=== PATIENT | male | born 1960 | race Caucasian/White ===

== ENCOUNTER → 2019-05-27 10:13 | Outpatient (CLI) | payer OTHER, MEDICAID, SELFPAY ==
[2019-05-27 10:51] LABS: Add Manual Diff / Slide Review NO; Basophils Absolute Auto 0 /uL (0-100); Basophils Percent Auto 0.6 % (0-2); Eosinophils Absolute Auto 200 /uL (0-450); Eosinophils Percent Auto 2.2 % (2-4); Hematocrit 46.6 % (41-53); Hemoglobin 15.6 g/dL (13.5-17.5); Lymphocytes Absolute Auto 1600 /uL (1100-4500); Lymphocytes Percent Auto 21.4 % (25-40); Mean Corpuscular HGB Conc 33.4 % (30-36); Mean Corpuscular Hemoglobin 30.3 PG (26-34); Mean Corpuscular Volume 90.8 fL (80-100); Monocytes Absolute Auto 700 /uL (0-900); Monocytes Percent Auto 9.3 % (3-14); Neutrophils Absolute Auto 5100 /uL (1500-7000); Neutrophils Percent Auto 66.5 % (50-75); Platelet Count 187 X10^3/uL (150-400); Red Blood Cell Count 5.13 X10^6/uL (4.5-5.9); Red Cell Distribution Width 13.8 % (11.6-14.8); White Blood Cell Count 7.6 X10^3/uL (4.5-11.0)
[2019-05-27 11:44] LABS: Alanine Aminotransferase 31 IU/L (21-72); Albumin 4.1 g/dL (3.5-5.0); Albumin Globulin Ratio 1.4 (1.0-2.8); Alkaline Phosphatase 105 U/L (38-126); Aspartate Aminotransferase 32 IU/L (17-59); BUN Creatinine Ratio 15.8 (6-22); Bilirubin Total 0.6 mg/dL (0.2-1.3); Blood Urea Nitrogen 19 mg/dL (9-20); Calcium 9.6 mg/dL (8.4-10.2); Carbon Dioxide 31 mmol/L (22-32); Chloride 102 mmol/L (98-107); Estimated Glomerular Filt Rate > 60.0 mL/min (>60); Globulin 2.9 g/dL (1.7-4.1); Glucose 77 mg/dL (70-100); HEMOLYSIS 16 (0-50); Sodium 139 mmol/L (137-145)
[2019-05-27 12:15] LABS: Prostate Specific Antigen Scrn 0.312 ng/mL (0.1-4.0)
== END ==
PROVIDERS: PCP Student in an Organized Health Care Education/Training Program; Visit Provider Student in an Organized Health Care Education/Training Program
DX: Z71.89 Other specified counseling (principal); E55.9 Vitamin D deficiency, unspecified; Z12.5 Encounter for screening for malignant neoplasm of prostate
CPT/HCPCS: 36415; 80053; 82306; 85025; G0103

== ENCOUNTER → 2022-01-18 07:42 | Outpatient (CLI) | payer OTHER, MEDICAID, SELFPAY ==
[2022-01-18 08:21] LABS: Appearance Urine UA CLEAR; Bilirubin Urine UA NEGATIVE (NEGATIVE); Color Urine UA YELLOW; Glucose Urine UA NEGATIVE (Negative); Ketones Urine UA NEGATIVE (NEGATIVE); Leukocyte Esterase Urine UA NEGATIVE (NEGATIVE); Nitrite Urine UA NEGATIVE (Negative); Occult Blood Urine UA NEGATIVE (Negative); Protein Urine UA NEGATIVE (Negative); Urobilinogen Urine UA 0.2 E.U./dL (0.2)
[2022-01-18 08:37] LABS: Cholesterol 196 mg/dL (140-199); HDL Cholesterol 63 mg/dL (40-60); LDL Cholesterol Calculated 113 mg/dL (<100); Triglycerides 102 mg/dL (35-150)
[2022-01-18 09:09] LABS: Prostate Specific Antigen Scrn 0.345 ng/mL (0.1-4.0)
[2022-01-18 10:02] LABS: Bacteria Urine None Seen; Culture Indicated Urine Cult Not Indicated; RBC Urine None Seen (0-5/HPF); WBC Urine None Seen (0-5/HPF)
== END ==
PROVIDERS: PCP Student in an Organized Health Care Education/Training Program; Referring Provider Student in an Organized Health Care Education/Training Program; Visit Provider Student in an Organized Health Care Education/Training Program
DX: Z13.220 Encounter for screening for lipoid disorders (principal); Z12.5 Encounter for screening for malignant neoplasm of prostate; R10.9 Unspecified abdominal pain
CPT/HCPCS: 36415; 80061; 81001; G0103

== ENCOUNTER → 2023-06-17 08:34 | Outpatient (CLI) | payer OTHER, MEDICAID, SELFPAY ==
[2023-06-17 09:11] LABS: Add Manual Diff / Slide Review NO; Basophils Absolute Auto 100 /uL (0-100); Basophils Percent Auto 0.7 % (0-2); Eosinophils Absolute Auto 200 /uL (0-450); Eosinophils Percent Auto 3.3 % (2-4); Hematocrit 45.4 % (41-53); Hemoglobin 15.8 g/dL (13.5-17.5); Lymphocytes Absolute Auto 1600 /uL (1100-4500); Mean Corpuscular HGB Conc 34.8 % (30-36); Mean Corpuscular Hemoglobin 30.9 PG (26-34); Monocytes Absolute Auto 600 /uL (0-900); Monocytes Percent Auto 9.5 % (3-14); Neutrophils Absolute Auto 4200 /uL (1500-7000); Neutrophils Percent Auto 62.5 % (50-75); Platelet Count 167 X10^3/uL (150-400); Red Cell Distribution Width 13.8 % (11.6-14.8); White Blood Cell Count 6.7 X10^3/uL (4.5-11.0)
[2023-06-17 09:36] LABS: Alanine Aminotransferase 26 IU/L (<50); Albumin 3.9 g/dL (3.5-5.0); Albumin Globulin Ratio 1.3 (1.0-2.8); Alkaline Phosphatase 77 U/L (38-126); Aspartate Aminotransferase 35 IU/L (17-59); BUN Creatinine Ratio 15.8 (6-22); Bilirubin Total 0.9 mg/dL (0.2-1.3); Blood Urea Nitrogen 18 mg/dL (9-20); Calcium 8.7 mg/dL (8.4-10.2); Carbon Dioxide 31 mmol/L (22-32); Chloride 103 mmol/L (98-107); Cholesterol 182 mg/dL (140-199); Estimated Glomerular Filt Rate > 60 mL/min (>60); Globulin 3.1 g/dL (1.7-4.1); Glucose 90 mg/dL (80-110); HDL Cholesterol 55 mg/dL (40-60); HEMOLYSIS < 15 (0-50); INR 1.1 (0.9-1.3); LDL Cholesterol Calculated 104 mg/dL (<100); Potassium 4.1 mmol/L (3.4-5.1); Prothrombin Time 12.9 SECONDS (10.1-12.7); Sodium 137 mmol/L (137-145); Triglycerides 115 mg/dL (35-150)
[2023-06-17 09:39] LABS: Appearance Urine UA CLEAR; Bilirubin Urine UA NEGATIVE (NEGATIVE); Color Urine UA YELLOW; Glucose Urine UA NEGATIVE (Negative); Ketones Urine UA NEGATIVE (NEGATIVE); Leukocyte Esterase Urine UA NEGATIVE (NEGATIVE); Nitrite Urine UA NEGATIVE (Negative); Occult Blood Urine UA NEGATIVE (Negative); Protein Urine UA NEGATIVE (Negative); Specific Gravity Urine UA 1.015 (1.000-1.035); Urobilinogen Urine UA 0.2 E.U./dL (0.2)
[2023-06-17 09:52] LABS: Bacteria Urine None Seen; Culture Indicated Urine Cult Not Indicated; RBC Urine None Seen (0-5/HPF); Squamous Epithelial Cell Urine None Seen (0-5/HPF); WBC Urine None Seen (0-5/HPF)
[2023-06-17 09:56] LABS: Prostate Specific Antigen Scrn 0.402 ng/mL (0.1-4.0)
[2023-06-17 10:24] LABS: HIV 1 & 2 Ab/Ag 4th Gen Combo NEGATIVE (NEGATIVE); Hep C Virus Ab w/Reflex Quant NEGATIVE s/c (NEGATIVE)
== END ==
PROVIDERS: PCP Pediatrics; Referring Provider Pediatrics; Visit Provider Pediatrics
DX: E78.2 Mixed hyperlipidemia (principal); K14.8 Other diseases of tongue; Z00.00 Encounter for general adult medical examination without abnormal findings; Z86.79 Personal history of other diseases of the circulatory system; Z12.5 Encounter for screening for malignant neoplasm of prostate; Z83.2 Family history of diseases of the blood and blood-forming organs and certain disorders involving the immune mechanism
CPT/HCPCS: 36415; 80053; 80061; 81001; 81240; 85025; 85610; 86803; 87389; G0103

== ENCOUNTER → 2024-03-16 15:16 | Outpatient (CLI) | payer OTHER, MEDICAID, SELFPAY ==
--- NOTE | 2024-03-16 15:17 | DI.RAD.S_ITS ---
PROCEDURE: XR CHEST 2V INDICATIONS: recent exposure to TB TECHNIQUE: 2 views of the chest were acquired. COMPARISON: None. FINDINGS: Surgical changes and devices: None. Lungs and pleura: Lungs are clear. No pleural effusions or pneumothorax. Prominent nipple shadows. Mediastinum: Mediastinal contours are normal. Heart size is normal. Bones and chest wall: No suspicious bony abnormalities. Soft tissues appear unremarkable. IMPRESSION: No evidence of active tuberculosis infection. Dictated by: Zeke Malone M.D. on 03/16/2024 at 16:15 Approved by: Zeke Malone M.D. on 03/16/2024 at 16:15
== END ==
PROVIDERS: PCP Family Medicine; Referring Provider Family Medicine; Visit Provider Family Medicine
DX: Z20.1 Contact with and (suspected) exposure to tuberculosis (principal)
CPT/HCPCS: 36415; 71046; 86480

== ENCOUNTER 2024-09-30 09:15 | Emergency (ER) | payer OTHER, MEDICAID, SELFPAY ==
[2024-09-30 09:16] VITALS: BP 140/68; PULSE 80; RESP 144; TEMP 36.8; O2SAT 99; BMI 31.0
[2024-09-30 09:20] VITALS: PULSE 81; O2SAT 99
[2024-09-30 09:21] VITALS: BP 140/68; PULSE 82; O2SAT 99
[2024-09-30 09:29] VITALS: BP 151/82; PULSE 82; O2SAT 98
--- NOTE | 2024-09-30 09:29 | DI.US.S_ITS ---
PROCEDURE: US PERIPH VENOUS LOW EXTREM RT INDICATIONS: rule out blood clot TECHNIQUE: Real-time imaging, as well as color and pulse Doppler interrogation, were performed of the lower extremity deep veins from the inguinal ligament to the popliteal fossa, with documentation of the visualized calf veins. COMPARISON: None. FINDINGS: Deep venous thrombosis in 1 of the paired posterior tibial veins. Superficial venous thrombosis in the greater saphenous vein in the calf and distal perforating branch. The common femoral, femoral, popliteal veins are normally compressible, and free of intraluminal thrombus. Color and pulse Doppler demonstrate normal phasic intraluminal flow. There is normal augmentation response to distal compression maneuver. IMPRESSION: Deep venous thrombosis of 1 of the paired posterior tibial calf veins. Superficial thrombosis of the greater saphenous vein in the mid calf. Dictated by: Zeke Malone M.D. on 09/30/2024 at 10:24 Approved by: Zeke Malone M.D. on 09/30/2024 at 10:25
[2024-09-30 09:30] VITALS: O2SAT 98
--- NOTE | 2024-09-30 09:48 | ED_ITS ---
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 About a year and a half ago he had a DVT that resolve spontaneously. He has recently turned from [place] with long drives and long flights. Went to bed well last night in the middle of the night woke up with increasing lower calf pain similar to that that he experienced year and half ago. No fevers, cough, chills, palpitations, shortness for breath. He has never been on blood thinners. Extensive family history of blood clots with multiple members being homozygotic for prothrombin abnormalities Related Data Previous Rx's Medication Instructions Recorded fluticasone propionate 50 1 spray intranasal BID #16 grams 10/24/23 mcg/actuation nasal spray,suspension amoxicillin 875 mg-potassium 1 tab PO BID 7 days #14 tabs 11/13/23 clavulanate 125 mg tablet bacitracin zinc 500 unit-polymyxin 1 applic topical Q12H 7 days #28.3 11/13/23 B 10,000 unit/gram topical ointment grams cephalexin 500 mg capsule 500 mg PO QID 10 days #40 caps 11/13/23 ciprofloxacin 0.2 %-hydrocortisone 3 drp otic (ear) BID 7 days #10 mL 11/13/23 1 % ear drops,suspension ciprofloxacin HCl 500 mg tablet 500 mg PO BID 10 days #20 tabs 11/13/23 metronidazole 500 mg tablet 500 mg PO TID 10 days #30 tabs 11/13/23 sulfamethoxazole 800 1 tab PO BID #14 tabs 11/13/23 mg-trimethoprim 160 mg tablet apixaban 5 mg (74 tabs) tablets in See Rx Instructions PO .COMPLEX 09/30/24 a dose pack (Eliquis DVT-PE Treat #74 ea 30D Start) Allergies Allergy/AdvReac Type Severity Reaction Status Date / Time tetracycline [TETRACYCLINE] Allergy Unknown Verified 09/30/24 09:23 Review of Systems Review of Systems Narrative: Pertinent positive and negative findings as per HPI Patient History Medical History (Updated 09/30/24 @ 10:36 by Mary Carrillo MD) Family history of blood dyscrasia History of hypertension Abnormal color of tongue Hypertension Hemorrhoid (~1989) 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) Vesicular rash (01/29/16) Surgical History Anesthesia Herniated disc (~1989) History of inguinal hernia repair (~1981) Status post knee surgery (~1978) Family History Father Cancer Social History Smoking Status: Never smoker Smoking Status: Never smoker alcohol intake frequency: holidays/special occasions only Substance Use Type: does not use Exam Initial Vital Signs Initial Vital Signs: Vital Signs Temperature 98.2 F 09/30/24 09:16 Pulse Rate 80 09/30/24 09:16 Respiratory Rate 144 H 09/30/24 09:16 Blood Pressure 140/68 09/30/24 09:16 Pulse Oximetry 99 09/30/24 09:16 Oxygen Delivery Method Room Air 09/30/24 09:16 General: Healthy appearing, in no acute distress. Able to give a complete and coherent history. Well-nourished well-developed Respiratory: Lungs are clear to auscultation, no wheezing no rales no rhonchi. Full and symmetrical air movement Cardiac: Regular rate and rhythm no murmurs no bruits Neurologic: Grossly neurologically intact with no obvious asymmetries or abnormalities Extremities: Neurovascularly intact. Tenderness on the medial aspect of the right lower calf into the central portion of the calf muscle. Minor hemosiderin deposits, minor varicose veins around the ankle. Left calf is unremarkable Psych: Cooperative, appropriate insight and affect Course Orders Ordered: ED Orders 09/30/24 09:29 perip venous low extrem rt Stat Vital Signs Vital signs: Vital Signs - 8 hr 09/30/24 09:16 09/30/24 09:20 09/30/24 09:21 Temperature 98.2 F Pulse Rate 80 81 82 Respiratory Rate 144 H Blood Pressure 140/68 Pulse Oximetry 99 99 99 Oxygen Delivery Method Room Air 09/30/24 09:21 09/30/24 09:29 09/30/24 09:29 Temperature Pulse Rate 82 Respiratory Rate Blood Pressure 140/68 151/82 H Pulse Oximetry 98 Oxygen Delivery Method 09/30/24 09:30 Temperature Pulse Rate Respiratory Rate Blood Pressure Pulse Oximetry 98 Oxygen Delivery Method MDM - Extremity (Nontraumatic) Imaging Data US - DVT: Radiologist's Impression: PROCEDURE: US PERIPH VENOUS LOW EXTREM RT INDICATIONS: rule out blood clot TECHNIQUE: Real-time imaging, as well as color and pulse Doppler interrogation, were perf ormed of the lower extremity deep veins from the inguinal ligament to the popliteal fossa, with documentation of the visualized calf veins. COMPARISON: None. FINDINGS: Deep venous thrombosis in 1 of the paired posterior tibial veins. Superficial venous thrombosis in the greater saphenous vein in the calf and distal perforating branch. The common femoral, femoral, popliteal veins are normally compressible, and free of intraluminal thrombus. Color and pulse Doppler demonstrate normal phasic intraluminal flow. There is normal augmentation response to distal compression maneuver. IMPRESSION: Deep venous thrombosis of 1 of the paired posterior tibial calf veins. Superficial thrombosis of the greater saphenous vein in the mid calf. Dictated by: Zeke Malone M.D. on 09/30/2024 at 10:24 MDM Narrative Medical decision making narrative: 64-year-old gentleman with right calf pain starting in the middle of the night. Reminiscent of pain similar to a DVT about a year and half ago which was not fully worked up and not treated at the time. He has a heterozygote carrier for prothrombin mutation. Ultrasound shows nonocclusive clot developing in the lower calf with a small amount of clot extending into the deep vessels of the calf. No proximal clot. Long discussion regarding risk factors, need for Eliquis, need for follow up with primary care and likely with Hematology to discuss how long he should be on anticoagulation given his heterozygote known prothrombin mutation. We did re view risks of bleeding reasons to come to the ER with minor head injuries, avoiding all nonsteroidals, wearing compression socks regularly and stopping the Alleve that he sometimes uses for back pain. He will be following up with his primary care physician, questions are answered, there was no indication for larger occlusive clot, pulmonary emboli, acute coronary syndrome or additional reasons for hospitalization at this time. Discharge Plan Departure Patient Disposition: Home Clinical Impression: DVT (deep venous thrombosis) Qualifiers: DVT location: lower extremity Affected thrombotic vein of extremity: unspecified lower extremity distal vein Chronicity: acute Laterality: right Qualified Code(s): I82.4Z1 - Acute embolism and thrombosis of unspecified deep veins of right distal lower extremity Instructions: DI for Deep Vein Thrombosis Activity Restrictions/Additional Instructions: Thank you for coming in today You do have a blood clot in the very lower portion of your leg. I have started you on Eliquis/apixaban, a blood thinner to prevent the clot from expanding or developing any new clots. The dosing for this is 10 mg morning and night for the 1st week then decreasing to 5 mg to continue. At the very minimum you will need 3 months of treatment. With your heterozygote prothrombin abnormality, the recommendation for longer treatment if not lifelong treatment we will need to be discussed. 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 It would be ideal for you to take a 2nd dose this evening I would recommend a follow up with your primary care physician, I have given you the 1st month's prescription of Eliquis. Your primary care physician may recommend follow up with dishcloth folder. I have found Dr. Kelly to be excellent at answering questions. Now that you are on a blood thinner you need to be aware that your risk for bleeding is higher. If you hit your head in any significant way(not including bumps on cabinets or door frames) you do need to come into the emergency department to be further evaluated for bleeding inside your head. Moderate inj uries the in the past may have had minor bleeding can now have more impressive bleeding. If you are having more pain, larger bruising or different findings than you would expect from the amount of trauma that you experienced, you do need to come to the ER No nonsteroidals-this includes ibuprofen, Motrin, naproxen, Alleve. Use aspirin very sparingly. To Excedrin occasionally for headache is going to be okay I would recommend regular use of compression socks to help with pain and swelling. We talked about using running compression socks as the compression is actually quite impressive and they are much more comfortable for extended wear. If you find that you are getting worse or develop any new symptoms, please feel free to return to the emergency department for further evaluation. Prescriptions: New Eliquis DVT-PE Treat 30D Start 5 mg (74 tabs) tablets,dose pack See Rx Instructions .ROUTE .COMPLEX Qty: 74 0RF Rx Instructions: orally per package directions No Action fluticasone propionate 50 mcg/actuation spray,suspension 1 spray intranasal BID Qty: 16 1RF Rx Instructions: administer into each nostril cephalexin 500 mg capsule 500 mg PO QID 10 Days Qty: 40 1RF sulfamethoxazole-trimethoprim 800-160 mg tablet 1 tab PO BID Qty: 14 1RF ciprofloxacin HCl 500 mg tablet 500 mg PO BID 10 Days Qty: 20 1RF Rx Instructions: Use for 5-10 days depending on severity of infection metronidazole 500 mg tablet 500 mg PO TID 10 Days Qty: 30 1RF Rx Instructions: Use for 5-10 days depending on severity of infection ciprofloxacin-hydrocortisone 0.2-1 % drops,suspension 3 drp otic (ear) BID 7 Days Qty: 10 1RF bacitracin zinc-polymyxin B 500-10,000 unit/gram ointment 1 applic topical Q12H 7 Days Qty: 28.3 1RF amoxicillin-pot clavulanate 875-125 mg tablet 1 tab PO BID 7 Days Qty: 14 1RF Referrals: Preet Farfan MD [Primary Care Provider] - Stand Alone Forms: Patient Portal/API/Survey
[2024-09-30 10:43] VITALS: BP 130/64; PULSE 78; RESP 16; TEMP 36.6; O2SAT 97
[2024-09-30] MEDS: APIXABAN 5 MG TABLET 10 MG PO (10:46)
== END 2024-09-30 11:19 | disposition home or self-care (01) ==
PROVIDERS: Emergency Provider Emergency Medicine; PCP Family Medicine
DX: I82.4Z1 Acute embolism and thrombosis of unspecified deep veins of right distal lower extremity (principal)
CPT/HCPCS: 93971; 99283

== ENCOUNTER → 2024-10-12 15:12 | Outpatient (CLI) | payer OTHER, MEDICAID, SELFPAY ==
--- NOTE | 2024-10-12 15:13 | DI.US.S_ITS ---
PROCEDURE: US ABDOMEN LIMITED INDICATIONS: New, umbilical hernia following yardwork. No pain. TECHNIQUE: Real-time focused scanning was performed of the abdomen, with image documentation. COMPARISON: None. FINDINGS: There is a fat containing umbilical hernia measuring 2.0 x 2.1 x 2.9 cm in size with wall defect measuring approximately 1.1 x 1.4 cm in cross-sectional dimension. IMPRESSION: Fat containing umbilical hernia. Dictated by: Renzo Cruz M.D. on 10/12/2024 at 21:26 Approved by: Renzo Cruz M.D. on 10/12/2024 at 21:27
== END ==
PROVIDERS: PCP Family Medicine; Referring Provider Physician Assistant Medical; Visit Provider Physician Assistant Medical
DX: K42.9 Umbilical hernia without obstruction or gangrene (principal)
CPT/HCPCS: 76705

== ENCOUNTER → 2024-10-21 12:30 | Outpatient (CLI) | payer OTHER, MEDICAID, SELFPAY ==
[2024-10-22 08:09] LABS: Varicella IgG Antibody Non Reactive (Non Reactive)
== END ==
PROVIDERS: PCP Family Medicine; Referring Provider Family Medicine; Visit Provider Family Medicine
DX: Z01.84 Encounter for antibody response examination (principal)
CPT/HCPCS: 36415; 86787